=== PATIENT | female | born 1930 | race Caucasian/White ===

== ENCOUNTER 2018-10-27 17:10 | Observation (INO) | payer MEDICARE, BC ==
[~2018-10-27] VITALS: Ht 167.6 cm; Wt 42.0 kg
[~2018-10-27 17:10] MED LIST: ASPI81CH PO; ATOR10; ATOR10 PO; Bactrim Ds Tab1 EACH PO; CALCAVITD PO; CALCAVITDA PO; CLIN300 PO; CRUTCH3 USE; CYAN100; Calcium 600 MG1 EACH PO; DOXY100T53 PO; ERGO400 PO; GLIP10 PO; GLIP2.5ER PO; GLIP5; GLIP5ER; Glipizide ER2.5 MG; HYDACE5 PO; Halcion0.25 MG; Halcion0.25 MG PO; IRON150C PO; Keflex500 MG PO; LEVSOD100; LEVSOD100 PO; LEVSOD50; METF500; METF500 PO; METF500C PO; Metformin HCl1000 MG; PIOG15 PO; SERT50; SITA100T2 PO; SITA25T2 PO; TRIAZOLAM PO; [UNRECOGNIZED DRUG - OTHER]
[2018-10-27 17:56] LABS: BASOPHILS ABSOLUTE AUTO 0.07 K/mm3 (0.00-0.23); BASOPHILS PERCENT AUTO 1 % (0-2); EOSINOPHILS ABSOLUTE AUTO 0.07 K/mm3 (0.00-0.68); EOSINOPHILS PERCENT AUTO 1 % (0-6); Hematocrit 19.6 % (33.0-51.0); IMMATURE GRAN ABSOLUTE AUTO 0.04 K/mm3 (0.00-0.10); IMMATURE GRAN PERCENT AUTO 0 % (0-1); LYMPHOCYTES ABSOLUTE AUTO 2.26 K/mm3 (0.84-5.20); LYMPHOCYTES PERCENT AUTO 17 % (21-46); MONOCYTES ABSOLUTE AUTO 0.95 K/mm3 (0.16-1.47); MONOCYTES PERCENT AUTO 7 % (4-13); Mean Corpuscular HGB 19.7 pg (26.0-34.0); Mean Corpuscular HGB Conc 28.1 g/dL (31.5-36.5); Mean Corpuscular Volume 70 fL (80-100); NEUTROPHILS ABSOLUTE AUTO 9.81 K/mm3 (1.96-9.15); NEUTROPHILS PERCENT AUTO 74 % (41-73); Platelet Count 368 K/mm3 (150-400); RDW Coefficient Variation 17.5 % (11.7-14.2); RDW Standard Deviation 45.1 fL (35.1-46.3); Red Blood Cell Count 2.79 M/mm3 (3.80-5.20)
[2018-10-27 17:59] LABS: Hemoglobin 5.5 g/dL (11.5-16.0)
[2018-10-27 18:13] LABS: Alanine Aminotransfer (ALT/SGP 20 U/L (12-78); Albumin, Blood 3.4 g/dL (3.4-5.0); Albumin/Globulin Ratio 1.2 (0.8-1.8); Alk Phos 51 U/L (50-136); Anion Gap 14 mmol/L (6-16); Aspartate Aminotrans (AST/SGOT 14 U/L (12-37); Bilirubin, Total 0.2 mg/dL (0.1-1.0); Blood Urea Nitrogen 33 mg/dL (8-24); Bun/Creatinine Ratio 42.5 (12.0-20.0); CO2, Blood 24 mmol/L (21-32); Calcium, Blood 8.8 mg/dL (8.5-10.1); Chloride, Blood 103 mmol/L (98-108); Creatinine, Blood 0.78 mg/dL (0.40-1.00); Globulin, Blood 2.9 g/dL (2.2-4.0); Glomerular Filtration Rate >60 (60-); Glucose, Blood 118 mg/dL (70-99); Potassium, Blood 3.8 mmol/L (3.5-5.5); Sodium, Blood 141 mmol/L (136-145); Total Protein, Blood 6.3 g/dL (6.4-8.2)
[2018-10-27 18:37] LABS: International Normalized Ratio 0.97; Prothrombin Time Results 10.3 Sec (9.7-11.5)
[2018-10-28] LABS: Source, Urine Clean Catch
[2018-10-28 00:02] LABS: Bilirubin, Urine Neg (Neg); Blood, Urine Neg (Neg); Glucose Qualitative, Urine Neg (Neg); Ketones, Urine Neg (Neg); Leukocyte Esterase, Urine 2+ (Neg); Nitrite, Urine Neg (Neg); Protein, Urine 1+ (Neg); Specific Gravity, Urine 1.025 (1.003-1.022); Urobilinogen, Urine NORM (Normal)
[2018-10-28 00:12] LABS: Appearance, Urine Hazy (Clear); Color, Urine Yellow (P-Yellow)
[2018-10-28 00:14] LABS: Bacteria Mod /hpf; Red Blood Cells, Urine 0-2 /hpf (0-2); Squamous Epithelial Cells Few /hpf (Few); White Blood Cells, Urine 25-50 /hpf (0-5)
[2018-10-28 01:08] LABS: Hematocrit 29.8 % (33.0-51.0); Hemoglobin 9.4 g/dL (11.5-16.0); Mean Corpuscular HGB 24.6 pg (26.0-34.0); Mean Corpuscular HGB Conc 31.5 g/dL (31.5-36.5); Mean Platelet Volume 9.5 fL (9.1-12.4); Platelet Count 260 K/mm3 (150-400); RDW Coefficient Variation 20.1 % (11.7-14.2); RDW Standard Deviation 56.6 fL (35.1-46.3); Red Blood Cell Count 3.82 M/mm3 (3.80-5.20); White Blood Cell Count 13.42 K/mm3 (4.00-11.30)
[2018-10-28 01:12] LABS: Mean Corpuscular Volume 78 fL (80-100)
[2018-10-28 01:28] LABS: Alanine Aminotransfer (ALT/SGP 18 U/L (12-78); Albumin, Blood 3.1 g/dL (3.4-5.0); Albumin/Globulin Ratio 1.2 (0.8-1.8); Alk Phos 46 U/L (50-136); Anion Gap 9 mmol/L (6-16); Aspartate Aminotrans (AST/SGOT 21 U/L (12-37); Blood Urea Nitrogen 32 mg/dL (8-24); Bun/Creatinine Ratio 43.8 (12.0-20.0); CO2, Blood 27 mmol/L (21-32); Calcium, Blood 8.3 mg/dL (8.5-10.1); Chloride, Blood 106 mmol/L (98-108); Creatinine, Blood 0.73 mg/dL (0.40-1.00); Globulin, Blood 2.6 g/dL (2.2-4.0); Glomerular Filtration Rate >60 (60-); Glucose, Blood 81 mg/dL (70-99); Potassium, Blood 3.6 mmol/L (3.5-5.5); Sodium, Blood 142 mmol/L (136-145); Total Protein, Blood 5.7 g/dL (6.4-8.2)
--- NOTE | 2018-10-28 07:18 | NUR ---
forgetful but easily redirectiable, saline locked, 2L via nc, call light in reach able to make needs know, walking rounds completed with day staff
[2018-10-28 08:47] LABS: Hematocrit 29.2 % (33.0-51.0); Hemoglobin 9.2 g/dL (11.5-16.0)
--- NOTE | 2018-10-28 18:30 | NUR ---
SHIFT SUMMARY. ALERT, ORIENTATED TO SELF AND CAREGIVERS. BED ALARM ON FOR SAFETY. NO BM THIS SHIFT. CBG BEFORE DINNER 499, COVERED WITH SLIDING SCALE INSULIN. SPOKE WITH DR. FIELDS, HE DID NOT WANT TO START PT ON HOME PO HYPOGLYCEMICS. DR. ARAGON SAW PT THIS AFTERNOON. VSS. NO NEW CHANGES.
[2018-10-28 20:12] LABS: Hematocrit 30.9 % (33.0-51.0)
--- NOTE | 2018-10-29 05:29 | NUR ---
NOC SHIFT SUMMARY. THIS PT HAS BEEN CONFUSED BUT LITO PLEASANT WITH CARE THIS NIGHT. SHE HAS OFTEN WOKE AND ATTEMPTED TO GET OUT OF BED BUT IS EASILY REDIRECTED. SHE HAS SPENT MOST IF TH ENIGHT SLEEPING RESTFULLY. WILL CONTINUE TO MONITOR.
[2018-10-29 08:18] LABS: BASOPHILS ABSOLUTE AUTO 0.06 K/mm3 (0.00-0.23); BASOPHILS PERCENT AUTO 1 % (0-2); EOSINOPHILS ABSOLUTE AUTO 0.13 K/mm3 (0.00-0.68); EOSINOPHILS PERCENT AUTO 2 % (0-6); Hematocrit 32.2 % (33.0-51.0); IMMATURE GRAN ABSOLUTE AUTO 0.02 K/mm3 (0.00-0.10); IMMATURE GRAN PERCENT AUTO 0 % (0-1); LYMPHOCYTES ABSOLUTE AUTO 1.49 K/mm3 (0.84-5.20); LYMPHOCYTES PERCENT AUTO 19 % (21-46); MONOCYTES ABSOLUTE AUTO 0.75 K/mm3 (0.16-1.47); MONOCYTES PERCENT AUTO 10 % (4-13); Mean Corpuscular HGB 24.1 pg (26.0-34.0); Mean Corpuscular HGB Conc 31.1 g/dL (31.5-36.5); Mean Corpuscular Volume 78 fL (80-100); Mean Platelet Volume 9.3 fL (9.1-12.4); NEUTROPHILS PERCENT AUTO 68 % (41-73); Platelet Count 289 K/mm3 (150-400); RDW Coefficient Variation 20.3 % (11.7-14.2); RDW Standard Deviation 56.8 fL (35.1-46.3); Red Blood Cell Count 4.15 M/mm3 (3.80-5.20); White Blood Cell Count 7.75 K/mm3 (4.00-11.30)
[2018-10-29 08:37] LABS: Alanine Aminotransfer (ALT/SGP 16 U/L (12-78); Albumin, Blood 3.1 g/dL (3.4-5.0); Albumin/Globulin Ratio 1.2 (0.8-1.8); Alk Phos 51 U/L (50-136); Anion Gap 7 mmol/L (6-16); Aspartate Aminotrans (AST/SGOT 12 U/L (12-37); Bilirubin, Total 0.5 mg/dL (0.1-1.0); Blood Urea Nitrogen 14 mg/dL (8-24); Bun/Creatinine Ratio 19.4 (12.0-20.0); CO2, Blood 30 mmol/L (21-32); Calcium, Blood 8.1 mg/dL (8.5-10.1); Chloride, Blood 109 mmol/L (98-108); Creatinine, Blood 0.72 mg/dL (0.40-1.00); Globulin, Blood 2.6 g/dL (2.2-4.0); Glomerular Filtration Rate >60 (60-); Glucose, Blood 154 mg/dL (70-99); Potassium, Blood 3.4 mmol/L (3.5-5.5); Sodium, Blood 146 mmol/L (136-145); Total Protein, Blood 5.7 g/dL (6.4-8.2)
--- NOTE | 2018-10-29 10:38 | NUR ---
1030 PT TO DAY SURGERY FOR ENDOSCOPY. CAREGIVER WITH PT.
--- NOTE | 2018-10-29 10:38 | NUR ---
FROM 3RD FLOOR WITH RN TO SDS ADMISSION STARTED TO UNIT.
--- NOTE | 2018-10-29 10:59 | NUR ---
10/29/18 1059 Sebastien Perez Bite Block PlacedPATIENT DETERMINED TO BE ASA APPROPRIATE FOR PROPOFOL SEDATION PRIOR TO START OF PROCEDURE BY .3-LEAD EKG REVIEWED WITH PHYSICIAN PRIOR TO START OF PROCEDURE.Patient to ENDO 1History, Chart, Medications and Allergies reviewed before start of procedure.MONITOR INTACT WITH CONTINUOUS PULSE OXIMETRY AND INTERMITTENT BP.O2 VIA N/C INTACT THROUGHOUT SEDATION/PROCEDURE.
[2018-10-29] MEDS ORDERED: BISA10S PR (13:23)
[2018-10-29] MEDS ORDERED: INSULANPEN SC (13:24)
[2018-10-29] MEDS ORDERED: Ferrous Sulfat325 M2 PO (13:24)
[2018-10-29] MEDS ORDERED: ASCO500 PO (13:25)
[2018-10-29] MEDS ORDERED: ONDA4ODT MM (13:25)
[2018-10-29] MEDS ORDERED: PANT40 PO (13:26)
[2018-10-29] MEDS ORDERED: Acetaminophen325 M1 PO (13:27)
--- NOTE | 2018-10-29 16:07 | NUR ---
SHIFT SUMMARY. 1522 PT DISCHARGED HOME VIA PERSONAL VEHICLE ACCOMPANIED AND DRIVEN BY CAREGIVER. PT ESCORTED TO FACILITY ENTRANCE BY SCARFER OPERATOR VIA W/C. NEW RX FAXED TO [facility] PER CAREGIVER REQUEST. IV REMOVED. D/C PAPERWORK REVIEWED WITH CAREGIVER AND COPY PROVIDED, INCLUDING OF [facility] FOR NEW RX.
--- NOTE | 2018-10-29 16:33 | NUR ---
Pt discharging at this time. Reviewed hospitalization with Baljinder, nurse. He reports that she is doing well and eating. She has caregivers at home during the day and is alone at night from 6pm to 9am the next morning. She is able to get out of bed and use the restroom independently. Daughter lives in [place], has considered moving to [place] to help with mom. KPS 40%, PPS 50% FAST score is 6a from the information I have available.
== END 2018-10-29 15:22 | disposition home or self-care (01) ==
LOC: ER 17:10 → MEDS 17:11 → ER 19:45 → MEDS 19:45
PROVIDERS: Emergency Medicine; Family Medicine; Internal Medicine Gastroenterology; Physician Assistant; ADMIT Internal Medicine
PROC: 0DJD8ZZ Inspection of Lower Intestinal Tract, Via Natural or Artificial Opening Endoscopic (ICD-10-PCS; principal; 2018-10-29 11:00)
DX: K31.7 Polyp of stomach and duodenum (principal); K22.2 Esophageal obstruction; D62 Acute posthemorrhagic anemia; K92.2 Gastrointestinal hemorrhage, unspecified; F03.90 Unspecified dementia, unspecified severity, without behavioral disturbance, psychotic disturbance, mood disturbance, and anxiety; E11.9 Type 2 diabetes mellitus without complications; E03.9 Hypothyroidism, unspecified; E78.5 Hyperlipidemia, unspecified; M19.90 Unspecified osteoarthritis, unspecified site; Z88.0 Allergy status to penicillin; Z79.899 Other long term (current) drug therapy; Z79.84 Long term (current) use of oral hypoglycemic drugs; Z86.010 Personal history of colon polyps
CPT/HCPCS: 36415; 36430; 80053; 81001; 82272; 82947; 85014; 85018; 85025; 85027; 85610; 85730; 86850; 86900; 86901; 86923; 93005; 93010; 96365; 96366; 96374; 96375; 96376; 99285-25; C9113; G0378; J0696; J7030; J7120; P9016

== ENCOUNTER → 2018-11-26 | Outpatient (CLI) | payer MEDICARE ==
[~2018-11-26] MED LIST changes: +ASCO500 PO; +Acetaminophen325 M1 PO; +BISA10S PR; +Ferrous Sulfat325 M2 PO; +INSULANPEN SC; +ONDA4ODT MM; +PANT40 PO
== END | disposition home or self-care (01) ==
LOC: LAB SHORT 14:59 → LAB EV 14:59
DX: R82.79 Other abnormal findings on microbiological examination of urine (principal)
CPT/HCPCS: 87077; 87086; 87186

== ENCOUNTER 2018-12-22 14:24 | Emergency (ER) | payer MEDICARE ==
[~2018-12-22] VITALS: Ht 162.6 cm; Wt 49.9 kg
[~2018-12-22 14:24] MED LIST changes: -GLIP10 PO; +GLIP10ER PO; +LEVSOD75 PO; -METF500C PO; +Metformin HCl1000 MG PO
[2018-12-22 15:34] LABS: BASOPHILS ABSOLUTE AUTO 0.08 K/mm3 (0.00-0.23); BASOPHILS PERCENT AUTO 1 % (0-2); EOSINOPHILS ABSOLUTE AUTO 0.15 K/mm3 (0.00-0.68); EOSINOPHILS PERCENT AUTO 1 % (0-6); Hematocrit 26.7 % (33.0-51.0); Hemoglobin 7.8 g/dL (11.5-16.0); IMMATURE GRAN ABSOLUTE AUTO 0.04 K/mm3 (0.00-0.10); IMMATURE GRAN PERCENT AUTO 0 % (0-1); LYMPHOCYTES ABSOLUTE AUTO 2.65 K/mm3 (0.84-5.20); LYMPHOCYTES PERCENT AUTO 25 % (21-46); MONOCYTES ABSOLUTE AUTO 0.83 K/mm3 (0.16-1.47); MONOCYTES PERCENT AUTO 8 % (4-13); Mean Corpuscular HGB 24.2 pg (26.0-34.0); Mean Corpuscular HGB Conc 29.2 g/dL (31.5-36.5); Mean Corpuscular Volume 83 fL (80-100); Mean Platelet Volume 9.4 fL (9.1-12.4); NEUTROPHILS ABSOLUTE AUTO 6.86 K/mm3 (1.96-9.15); NEUTROPHILS PERCENT AUTO 65 % (41-73); Platelet Count 287 K/mm3 (150-400); RDW Coefficient Variation 20.4 % (11.7-14.2); RDW Standard Deviation 61.8 fL (35.1-46.3); Red Blood Cell Count 3.22 M/mm3 (3.80-5.20); White Blood Cell Count 10.61 K/mm3 (4.00-11.30)
[2018-12-22 15:52] LABS: International Normalized Ratio 0.95; Prothrombin Time Results 10.1 Sec (9.7-11.5)
[2018-12-22 16:08] LABS: Alanine Aminotransfer (ALT/SGP 18 U/L (12-78); Albumin, Blood 3.4 g/dL (3.4-5.0); Albumin/Globulin Ratio 1.3 (0.8-1.8); Alk Phos 92 U/L (50-136); Anion Gap 5 mmol/L (6-16); Aspartate Aminotrans (AST/SGOT 12 U/L (12-37); Bilirubin, Total 0.3 mg/dL (0.1-1.0); Blood Urea Nitrogen 22 mg/dL (8-24); Bun/Creatinine Ratio 29.3 (12.0-20.0); CO2, Blood 28 mmol/L (21-32); Calcium, Blood 8.9 mg/dL (8.5-10.1); Chloride, Blood 108 mmol/L (98-108); Creatinine, Blood 0.75 mg/dL (0.40-1.00); Globulin, Blood 2.7 g/dL (2.2-4.0); Glomerular Filtration Rate >60 (60-); Glucose, Blood 137 mg/dL (70-99); Potassium, Blood 4.2 mmol/L (3.5-5.5); Sodium, Blood 141 mmol/L (136-145); Total Protein, Blood 6.1 g/dL (6.4-8.2)
[2018-12-22 16:35] LABS: Source, Urine Clean Catch
[2018-12-22 16:45] LABS: Bilirubin, Urine Neg (Neg); Blood, Urine Neg (Neg); Glucose Qualitative, Urine Neg (Neg); Ketones, Urine Neg (Neg); Leukocyte Esterase, Urine 1+ (Neg); Nitrite, Urine Neg (Neg); Protein, Urine 1+ (Neg); Urobilinogen, Urine NORM (Normal)
[2018-12-22 16:50] LABS: Appearance, Urine Clear (Clear); Color, Urine Yellow (P-Yellow)
[2018-12-22 16:53] LABS: Red Blood Cells, Urine Not Seen /hpf (0-2)
[2018-12-22 16:54] LABS: Bacteria Mod /hpf; Squamous Epithelial Cells Few /hpf (Few)
[2018-12-22] MEDS ORDERED: ATOR10 PO (19:49)
[2018-12-22] MEDS ORDERED: SITA100T2 PO (19:50)
[2018-12-22] MEDS ORDERED: NAMZARIC 28 MG1 EACH PO (19:51)
[2018-12-23] MEDS ORDERED: CHLOROPHYLL PO (14:57)
== END 2018-12-22 20:35 | disposition home or self-care (01) ==
LOC: ER 14:24
PROVIDERS: Physician Assistant
DX: F03.90 Unspecified dementia, unspecified severity, without behavioral disturbance, psychotic disturbance, mood disturbance, and anxiety (principal); D64.9 Anemia, unspecified; E11.9 Type 2 diabetes mellitus without complications; Z79.84 Long term (current) use of oral hypoglycemic drugs; Z79.899 Other long term (current) drug therapy; Z87.891 Personal history of nicotine dependence; W19.XXXA Unspecified fall, initial encounter
CPT/HCPCS: 36415; 80053; 81001; 82272; 85025; 85610; 85730; 86850; 86900; 86901; 86923; 87077; 87086; 87186; 93005; 93010; 99284-25

== ENCOUNTER 2018-12-23 12:00 | Day surgery (SDC) | payer MEDICARE ==
[~2018-12-23 12:00] MED LIST changes: +NAMZARIC 28 MG1 EACH PO
[2018-12-23] MEDS ORDERED: CHLOROPHYLL PO (14:57)
== END 2018-12-23 17:00 | disposition home or self-care (01) ==
LOC: LAB 12:00 → ATC 12:00 → EDSTATUS 12-23 02:40 → LAB FUT 12-23 02:40
DX: D50.0 Iron deficiency anemia secondary to blood loss (chronic) (principal); E11.9 Type 2 diabetes mellitus without complications; E03.9 Hypothyroidism, unspecified; E78.5 Hyperlipidemia, unspecified; M19.90 Unspecified osteoarthritis, unspecified site; F03.90 Unspecified dementia, unspecified severity, without behavioral disturbance, psychotic disturbance, mood disturbance, and anxiety; Z88.0 Allergy status to penicillin
CPT/HCPCS: 36415; 36430; 86850; 86900; 86901; 86923; J7050; P9016